=== PATIENT | male | born 1975 | race Caucasian/White ===

== ENCOUNTER 2021-06-17 22:32 | Emergency (ER) | payer OTHER, SELFPAY ==
--- NOTE | 2021-06-17 00:35 | RAD_ITS ---
STUDY: X-RAY CHEST REASON FOR EXAM: Male, 46 years old. chest pain TECHNIQUE: Single AP portable view of the chest. COMPARISON: None. FINDINGS: The lungs are clear and expanded. There is no demonstrated pleural abnormality. Normal size heart. Normal mediastinum and laurie. Normal visualized pulmonary arteries. Normal visualized aortic arch and descending thoracic aorta. Normal visualized thoracic spine. There is degenerative osteoarthritis of the bilateral shoulders. There is no demonstrated abnormality of the visualized soft tissue structures of the upper abdomen. RAD/Chest 1 View (Portable) IMPRESSION: Normal x-ray examination of the chest. Electronically Signed: Bala Patel MD at 1:01 EDT Tel , Service support ,
[2021-06-17 22:33] VITALS: BP 141/102; PULSE 86; RESP 16; TEMP 36.4; O2SAT 96; BMI 30.7
--- NOTE | 2021-06-17 22:55 | EKG12_ITS ---
Test Reason : DYSRHYTHMIA Blood Pressure : / mmHG Vent. Rate : 072 BPM Atrial Rate : 072 BPM P-R Int : 176 ms QRS Dur : 120 ms QT Int : 396 ms P-R-T Axes : 029 018 024 degrees QTc Int : 433 ms Normal sinus rhythm Poor R wave progression Confirmed by GUILLERMINA ACEVEDO, ZULEIKA ([id number]), supervising editor trailer AUSTIN MIMS ([id number]) on 06/18/2021 1:26:58 PM Referred By: KELLY Confirmed By:ZULEIKA SARMIENTO MD
[2021-06-18 00:55] VITALS: O2SAT 99
[2021-06-18 00:59] LABS: Absolute Lymphocyte Count 2.56 X10^3/uL (0.83-4.51); Absolute Neutrophil Count 4.2 X10^3/uL (2.0-7.7); Basophil# 0.05 X10^3/uL; Basophil% 0.7 % (0-1); Eosinophil# 0.08 X10^3/uL; Eosinophils% 1.1 % (0-5); Hematocrit 47.7 % (40-54); Hemoglobin 15.9 g/dL (13.0-16.5); Lymphocyte # 2.56 X10^3/ul (0.83-4.51); Lymphocyte % 34.1 % (19-41); Mean Corp Hgb Conc 33.3 g/dL (32-36); Mean Corpuscular Hgb 28.9 pg (27.0-32.0); Mean Corpuscular Volume 86.6 fL (80-94); Mean Platelet Vol. 9.7 fl (6.2-12.0); Monocyte# 0.59 X10^3/uL; Monocyte% 7.9 % (0-10); NRBC Flagged by Analyzer 0 % (0-5); Neutrophil % 55.9 % (47-70); Platelet Count 217 K/mm3 (150-450); RBC Distribution Width CV 12.5 % (11.6-14.6); RBC Distribution Width SD 39.7 fl (35.1-43.9); Red Blood Count 5.51 M/mm3 (4.6-6.2); White Blood Count 7.5 K/mm3 (4.4-11.0)
--- NOTE | 2021-06-18 01:17 | EX.ED.DYSGE1 ---
HPI History of Present Illness Chief Complaint: General Illness Informant: patient Onset/Context/Timing Onset: Days (3) Context: Sudden Onset Timing: Intermittent and Lasts (minutes) Quality: see below Location: head Current Severity: Gone Maximum Severity: Moderate Worsened by: lying down, and/or sitting up Relieved by: remaining still Narrative Narrative: Patient presents for insomnia. States cannot sleep, although he is sleeping for some time but then he will wake up feeling funny in his head, he describes it is foggy, and then he will sit up and he describes it as I feel like I am full of energy and I just need to go and he just feels odd. He states his palms get clammy but not numb, tingly, weak. He denies any chest pain, palpitations, shortness of breath, focal neurologic symptoms, changes in vision or diplopia, ear pain, tinnitus, decreased hearing, recent illness of any kind including Covid, nor symptoms of an upper respiratory tract infection now. No recent head injury. No headaches. PFSH PFSH no medical history Home Medications meclizine 25 mg PO Q8H PRN PRN #20 tab 06/18/21 [Rx Last Taken Unknown] simvastatin 20 mg PO DAILY 06/18/21 [History Last Taken Unknown] Allergy/AdvReac Type Severity Reaction Status Date / Time No Known Allergies Allergy Verified 06/17/21 22:33 Social History Smoking Status: Never smoker ROS ROS ED Constitutional Constitutional ED: Reports as per HPI; Denies chills or fever(s) Eyes Eyes: Denies change in vision or diplopia ENT ENT ED: Denies ear pain, hearing loss, rhinorrhea or sore throat Cardiovascular Cardiovascular: Denies chest pain or palpitations Respiratory/Chest Respiratory/Chest: Denies cough or dyspnea Gastrointestinal Gastrointestinal: Denies abdominal pain, diarrhea, nausea or vomiting Genitourinary Genitourinary ED: Denies dysuria or hematuria Musculoskeletal Musculoskeletal: Denies back pain or neck pain Integumentary Denies abscess or rash Neurologic Neurologic: Denies headache(s), paresthesias or weakness Psychiatric Psychiatric: Denies anxiety or suicidal thoughts EXAM Physical Exam Const Vital Signs: 06/17/21 22:33 06/18/21 00:15 06/18/21 00:55 Temperature 97.5 F L Temperature Source Temporal Pulse Rate 86 Respiratory Rate 16 Respiratory Effort Normal Non-Labored Respiratory Pattern Normal Blood Pressure 141/102 H Blood Pressure Mean 115 Pulse Ox 96 99 Oxygen Delivery Method Room Air Room Air Positive well nourished and well developed General Appearance ED: well developed and NAD HEENT Reports moist mucous membranes normocephalic and atraumatic Eyes PERRL and EOMs intact bilaterally Eyes Narrative: No abnormal horizontal nystagmus or vertical/rotatory nystagmus. Neck full ROM and supple Resp normal respiratory effort and clear to auscultation bilaterally Cardio regular rate, regular rhythm and no murmurs GI non-tender and non-distended Auscultation: normoactive bowel sounds Palpation: soft Back/Spine no CVA tenderness General Back: other FROM Extremity normal to inspection General Extremety ED: Negative for edema, pulses abnormal or tenderness General Extremity: Negative for edema or pulses abnormal Neuro oriented x3, CN's II-XII intact bilaterally and no sensory deficits noted Neuro Narrative: With Grygla-Hallpike, patient has recurrent symptoms, mild, bilaterally and symmetric without nystagmus. Normal [id number] and gnat-og-[id number] bilaterally. Sensorium / Orientation: awake and alert Motor Exam: strength 5/5 throughout Skin no rashes or lesions noted and no wounds MDM MDM MDM Narrative Medical decision making narrative: Patient has a hard time describing his symptoms. Given what he is saying though, I think this is peripheral vertigo. I think that makes the most sense. He is getting to sleep without any difficulty at times, but then wakes up with the symptoms, and then reproduces them with these recurrent position changes. It does not sound like BPPV or an unusual brain tumor given that there really does not seem to be any lateralization on exam. Therefore I do not think he needs a CT tonight. I think is reasonable to treat him with meclizine symptomatically and if his symptoms persist longer than a week he should follow-up and he and his are comfortable with this plan, they asked lots of questions I tried to answer all the questions at the bedside with my honest judgment and opinion. Radiography Diagnostic Testing: Radiology Impression Chest X-Ray 06/17/21 00:35 IMPRESSION: Normal x-ray examination of the chest. Electronically Signed: Bala Patel MD at 1:01 EDT Tel , Service support , Discharge Plan Triage Chief Complaint: General Illness ED Provider: Roman Rowan Dx/Rx/DC Orders Clinical Impression: Peripheral vertigo, unspecified Instructions: ED Vertigo, Unspecified Prescriptions: New meclizine [meclizine] 25 MG tablet 25 mg PO Q8H PRN PRN (Reason: Dizziness) Qty: 20 RF: 0 No Action simvastatin 20 mg tablet 20 mg PO DAILY RF: 0 Primary Care Provider: Little Greco NP Referrals: Little Greco NP, [employer] [Primary Care Provider] - 1 Week if not improving Disposition Disposition: Home, Self Care
[2021-06-18] MEDS: Meclizine HCl 25 MG Tablet PO (01:44)
[2021-06-18 01:46] VITALS: PULSE 65; RESP 15; O2SAT 99
[2021-06-18 01:57] LABS: Anion Gap 7 (5-15); BUN 23 mg/dL (7-18); BUN/Creat Ratio 21.5 RATIO (10-20); Calcium,Total 8.9 mg/dL (8.5-10.1); Chloride 107 mmol/L (98-107); Creatinine, Serum 1.07 mg/dL (0.70-1.30); EST Glomerular Filtration Rate 79 mL/min (>60); Est Glom Filt Rate - Afr Amer 96 mL/min (>60); Estimated Creatinine Clearance 91.88 ml/min; Glucose 105 mg/dL (74-106); Potassium 3.7 mmol/L (3.5-5.1); Sodium Level 140 mmol/L (136-145); Troponin-I HS 5 pg/mL (3.0-78.0)
== END 2021-06-18 01:47 | disposition home or self-care (01) ==
PROVIDERS: Emergency Provider Emergency Medicine; PCP Nurse Practitioner Primary Care
DX: H81.399 Other peripheral vertigo, unspecified ear (principal); Z79.899 Other long term (current) drug therapy
CPT/HCPCS: 71045; 80048; 84484; 85025; 93005; 99284